=== PATIENT | male | born 1980 | race Hispanic/Latino ===

== ENCOUNTER 2016-03-25 13:24 | Emergency (ER) | payer OTHER ==
[~2016-03-25] VITALS: Ht 165.1 cm; Wt 68.2 kg
[2016-03-25 13:27] VITALS: BP 124/88; PULSE 64; RESP 16; O2SAT 98
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
[2016-03-25] MEDS ORDERED: IBUP-1827 PO (15:50)
[2016-03-25] MEDS ORDERED: CYCL5TAB PO (15:50)
[2016-03-25 16:22] VITALS: BP 124/80; PULSE 72; RESP 20; O2SAT 99
== END 2016-03-25 16:38 | disposition home or self-care (01) ==
LOC: SED 13:24
DX: S39.012A Strain of muscle, fascia and tendon of lower back, initial encounter (principal); V43.52XA Car driver injured in collision with other type car in traffic accident, initial encounter; Y93.89 Activity, other specified; Y92.410 Unspecified street and highway as the place of occurrence of the external cause; Y99.8 Other external cause status; Z87.39 Personal history of other diseases of the musculoskeletal system and connective tissue